=== PATIENT | female | born 1975 | race American Indian/Alaskan Native ===

== ENCOUNTER 2018-03-10 10:17 | Outpatient (CLI) | payer OTHER ==
--- NOTE | 2018-03-10 12:00 | Magnetic Resonance Report ---
MRI scan of brain: History: Vertigo of central origin, Technique: Multiplanar multisequence images were obtained without contrast injection. Findings: No evidence of restricted diffusion. Ventricles are normal in size and midline in location. No evidence of acute ischemia, hemorrhage or mass. No extra-axial fluid collection. Calcification along the falx. Normal brainstem and cerebellum. Normal sinuses. Impression: No acute intracranial abnormality.
--- NOTE | 2018-03-10 13:01 | XRay Report ---
Left shoulder 3 views: History: Rotated cuff tear. Next Findings: Normal a.c. joint and glenohumeral joint. No fracture dislocation or soft tissue calcification. Impression: No definite bony or articular abnormalities of the joint.
== END 2018-03-10 10:18 | disposition home or self-care (01) ==
LOC: EDSEX 10:17 → MRI 10:17
PROVIDERS: ATTEND Internal Medicine
DX: M19.012 Primary osteoarthritis, left shoulder (principal); H81.41 Vertigo of central origin, right ear; H93.11 Tinnitus, right ear
CPT/HCPCS: 70551